=== PATIENT | female | born 1995 ===

== ENCOUNTER → 2021-07-07 10:43 | Outpatient (CLI) | payer OTHER, SELFPAY ==
--- NOTE | ~2021-07-07 | MR_ITS ---
EXAMINATION: Shara Pina DATE: 07/07/2021 12:12 INDICATION: Bilateral temporomandibular joint pain and popping. TECHNIQUE: Magnetic resonance imaging (MRI) of the temporomandibular joints was performed without int ravenous contrast. Sequences included closed-mouth sagittal T2-weighted FSE and PD-weighted FSE and c oronal T1-weighted SE and open-mouth sagittal T2-weighted FSE and PD-weighted FSE and coronal T1-weig hted SE. COMPARISON: None. FINDINGS: The right mandibular condyle is normal in morphology. There is anterior displacement of the disk with mouth closed. There is recapture of the disk with normal alignment with mouth open. The left mandible condyle is normal in morphology. There is anterior displacement of the disk with mo uth closed. There is recapture of the disk with normal alignment with mouth open. IMPRESSION: 1. Abnormal anterior displacement of both disks with mouth closed with normal reduction with mouth op en. Reviewed, dictated and finalized at location A. IMPRESSION: 1. Abnormal anterior displacement of both disks with mouth closed with normal r eduction with mouth open.
--- NOTE | ~2021-07-07 | MR_ITS ---
EXAMINATION: MR lumbar spine wo con EXAM DATE: 07/07/2021 12:14 INDICATION: Low back pain down mariana legs x2yrs, no trauma, no ca. TECHNIQUE: Multi-sequential, multiplanar MR images of the lumbar spine were obtained without contrast . Sagittal T1, T2, T2 fat saturation images. Axial T2 weighted images. There is no prior study for comparison. FINDINGS: There is 2 mm retrolisthesis L4 on L5 and L5 on S1 with mild to moderate disc disease at th michelle 2 levels. The vertebral body and disc heights are otherwise well maintained. The conus medullaris terminates at the T12-L1 level and has normal signal intensity and morphology. There are no suspici ous marrow signal abnormalities. Paraspinal soft tissue is unremarkable. Level by level evaluation: T12-L1: Disc does not extend beyond the endplate margin. Facet arthropathy: None. Neural foraminal stenosis: No stenosis. Central canal stenosis: No stenosis. L1-L2: Disc does not extend beyond the endplate margin. Facet arthropathy: Mild. Neural foraminal stenosis: No stenosis. Central canal stenosis: No stenosis. L2-L3: There is a minimal diffuse disc bulge. Facet arthropathy: Mild. Neural foraminal stenosis: No stenosis. Central canal stenosis: No stenosis. L3-L4: There is a minimal diffuse disc bulge. Facet arthropathy: Mild. Neural foraminal stenosis: No stenosis. Central canal stenosis: No stenosis. L4-L5: There is a moderate diffuse disc bulge. Facet arthropathy: Mild. Neural foraminal stenosis: Mild bilateral. Central canal stenosis: Moderate. Moderate narrowing of both lateral recesses and nerve root crowding . L5-S1: There is a mild to moderate diffuse disc bulge with left central disc protrusion displacing th e traversing S1 nerve root in the lateral recess. Facet arthropathy: Mild. Neural foraminal stenosis: Mild to moderate left, mild right. Central canal stenosis: Moderate, particularly left lateral recess. IMPRESSION: L4-5 and L5-S1 predominant spondylosis as detailed above. Reviewed, dictated and finalized at location B.
== END ==
DX: M47.896 Other spondylosis, lumbar region (principal)
CPT/HCPCS: 70336; 72148